=== PATIENT | male | born 1990 | race Caucasian/White ===

== ENCOUNTER 2017-01-15 16:37 | Emergency (ER) | payer MEDICAID, OTHER, SELFPAY ==
[~2017-01-15] VITALS: Ht 180.3 cm; Wt 66.0 kg
[2017-01-15 16:44] VITALS: BP 133/80
== END 2017-01-15 18:08 | disposition home or self-care (01) ==
LOC: ED 17:40
DX: K08.89 Other specified disorders of teeth and supporting structures (principal)
CPT/HCPCS: 99283

== ENCOUNTER 2017-01-29 01:01 | Emergency (ER) | payer OTHER ==
[~2017-01-29] VITALS: Ht 180.3 cm; Wt 66.1 kg
[2017-01-29 01:20] VITALS: BP 123/72
== END 2017-01-29 01:45 | disposition home or self-care (01) ==
LOC: ED 01:39
DX: L03.213 Periorbital cellulitis (principal)
CPT/HCPCS: 99283

== ENCOUNTER 2019-05-24 11:31 | Emergency (ER) | payer MEDICAID | END 2019-05-24 12:21 | disposition left against medical advice (07) | LOC: ED 12:15 | DX: H57.10 Ocular pain, unspecified eye (principal); Z53.21 Procedure and treatment not carried out due to patient leaving prior to being seen by health care provider ==

== ENCOUNTER 2019-07-30 20:05 | Emergency (ER) | payer SELFPAY ==
[~2019-07-30] VITALS: Ht 180.3 cm; Wt 76.0 kg
[2019-07-30 20:09] VITALS: BP 102/57
[2019-07-30 21:06] LABS: RAPID INFLUENZA A Negative (Negative); RAPID INFLUENZA B Negative (Negative)
== END 2019-07-30 21:35 | disposition home or self-care (01) ==
LOC: ED 20:25
DX: B34.9 Viral infection, unspecified (principal); R05 Cough; F17.210 Nicotine dependence, cigarettes, uncomplicated; M79.10 Myalgia, unspecified site; M54.9 Dorsalgia, unspecified
CPT/HCPCS: 71046; 87081; 87400; 87880; 99284